=== PATIENT | male | born 1975 | race Caucasian/White ===

== ENCOUNTER 2017-09-02 17:22 | Inpatient (IN) | payer OTHER ==
--- NOTE | 2017-09-02 17:30 | PDOC ---
Rapid Medical Evaluation Time Seen by Provider: 09/02/17 17:25 Medical Evaluation: 09/02/17 17:25 The patient presents with a chief complaint of: Blood clot in R leg. Diagnosed at urgent care. Has R leg swelling and pain. Pt. smokes. No recent travel. First time with blood clot. currently rates the pain a 3/10. Also states he has been getting shortness of breath in the last two weeks when getting up. No shortness of breath on exertion. I have performed a brief in-person evaluation of this patient; Pertinent physical exam findings: ambulatory, in no respiratory distress. I have ordered the following: CBC, CMP, PT/INR. Duplex US ekg, cxr The patient will proceed to the ED for further evaluation.
--- NOTE | 2017-09-02 17:50 | PDOC ---
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 Patient was seen at [facility] 6 days prior and treated for suspected cellulitis with Keflex and another antibiotic which he does not recall the name of. States that his swelling was worse today so he went back to [facility] and then found out he had a RLE DVT on an US performed at [facility]. He has a 30 pack year smoking history and binge drinks occasionally. Denies recent travel but has been more immobile lately as he was told to rest his right leg and elevate it for the presumed cellulitis. Denies fevers chills, nausea vomiting, skin break down, SOB, chest pain, or other sick symptoms. He does not have a PCP. 09/02/17 18:49 Past History - Past Medical History Allergies/Adverse Reactions: Allergies Allergy/AdvReac Type Severity Reaction Status Date / Time No Known Allergies Allergy Verified 09/02/17 17:25 COPD: No - Suicide/Smoking/Psychosocial Hx Smoking History: Never smoked Have you smoked in the past 12 months: Yes Number of Cigarettes Smoked Daily: 20 Information on smoking cessation initiated: Yes Hx Alcohol Use: No Drug/Substance Use Hx: No Substance Use Type: None Review of Systems - Review of Systems Constitutional: No: Chills, Diaphoresis, Fever HEENTM: No: Eye Pain, Blurred Vision, Double Vision Respiratory: No: Cough, Orthopnea, Shortness of Breath Cardiac (ROS): Yes: Edema. No: Chest Pain, Irregular Heart Rate, Palpitations ABD/GI: No: Constipated, Diarrhea, Nausea, Vomiting : No: Burning, Dysuria, Discharge Musculoskeletal: No: Back Pain, Joint Swelling, Muscle Pain Integumentary: Yes: Erythema. No: Bruising, Flushing, Lesions, Lumps Neurological: No: Headache, Numbness, Paresthesia Hematologic/Lymphatic: No: Anemia, Blood Clots, Easy Bleeding *Physical Exam - Vital Signs Last Vital Signs Temp Pulse Resp BP Pulse Ox 98.2 F 78 18 140/75 100 09/02/17 17:26 09/02/17 17:26 09/02/17 17:26 09/02/17 17:26 09/02/17 17:26 - Physical Exam General Appearance: Yes: Nourished, Appropriately Dressed. No: Apparent Distress HEENT: positive: EOMI, FLORA, Normal ENT Inspection, Normal Voice Neck: positive: Trachea midline, Normal Thyroid, Supple. negative: Tender, Rigid Respiratory/Chest: positive: Lungs Clear, Normal Breath Sounds. negative: Chest Tender, Respiratory Distress, Accessory Muscle Use Cardiovascular: positive: Regular Rhythm, Regular Rate Gastrointestinal/Abdominal: positive: Normal Bowel Sounds, Flat, Soft. negative : Tender Musculoskeletal: positive: Normal Inspection Extremity: positive: Normal Capillary Refill, Normal Range of Motion, Swelling. negative: Normal Inspection (Miriam cirumferential swelling in the RLE without tenderness or skin breakdown), Tender, Erythema Integumentary: positive: Normal Color, Dry, Warm Neurologic: positive: Fully Oriented, Alert, Normal Mood/Affect, Normal Response , Motor Strength 5/5 ED Treatment Course - LABORATORY CBC & Chemistry Diagram: 09/02/17 17:52 09/02/17 17:52 Medical Decision Making - Medical Decision Making 42 year old previously healthy male without any significant family history or DVTs or clotting disorders presenting with a right lower extremity DVT of unknown chronicity but likely 4-6 days. Patient denies trauma to that area but has been slightly immobile with a possible cellulitis (diagnosed by [facility] 6 days prior). Repeat U/S in our department demonstrating occlusive thrombosis within the right posterior tibial vein, poplieal and femoral veins, incomplete compressibility of the right common femoral vein with flow, likely compatible with nonocclusive thrombus. Case was discussed with Dr. Becker at 19:48 PM and he indicted that the most appropriate action at tis point would be medical management with heparin. Patient admitted under hospitalist service with extra hypercoag labs sent and heparin bolus + drip started. 09/02/17 20:05 *DC/Admit/Observation/Transfer Diagnosis at time of Disposition: DVT (deep venous thrombosis) Qualifiers: DVT location: lower extremity Affected thrombotic vein of extremity: other lower extremity vein Chronicity: acute Laterality: right Qualified Code(s): I82.491 - Acute embolism and thrombosis of other specified deep vein of right lower extremity - Discharge Dispostion Condition at time of disposition: Stable Admit: Yes - Referrals - Patient Instructions - Post Discharge Activity
[2017-09-02 17:57] LABS: BASO % 1.1 % (0-2.0); EOS % 3.7 % (0-4.5); HEMATOCRIT 39.5 % (35.4-49); HEMOGLOBIN 13.7 GM/dL (11.7-16.9); LYMPH % 35.2 % (8-40); MCH 30.2 pg (25.7-33.7); MCHC 34.7 g/dl (32.0-35.9); MEAN CELL VOLUME 87.1 fl (80-96); MEAN PLT VOLUME 7.7 fl (7.5-11.1); MONO % 6.9 % (3.8-10.2); NEUT % 53.1 % (42.8-82.8); PLATELET COUNT 251 K/MM3 (134-434); RBC 4.53 M/mm3 (4.00-5.60); RDW 12.6 % (11.9-15.9); WHITE BLOOD COUNT 8.8 K/mm3 (4.0-10.0)
[2017-09-02 18:22] LABS: ALBUMIN 4.2 g/dl (3.4-5.0); ANION GAP 10 (8-16); BILIRUBIN,TOTAL 0.2 mg/dL (0.2-1.0); BLOOD UREA NITROGEN 25 mg/dL (7-18); CHLORIDE 103 mmol/L (98-107); CO2 26 mmol/L (21-32); CREATININE 1.3 mg/dL (0.7-1.3); GLUCOSE,RANDOM 95 mg/dL (74-106); POTASSIUM 4.7 mmol/L (3.5-5.1); SGOT/AST 16 U/L (15-37); SGPT/ALT 26 U/L (12-78); SODIUM 139 mmol/L (136-145); TOT PROT 7.5 g/dl (6.4-8.2)
[2017-09-02 18:23] LABS: ALK PHOS 86 U/L (45-117)
[2017-09-02 18:43] LABS: INR 1.11 (0.82-1.09); PROTHROMBIN TIME (PATIENT) 12.5 SEC (9.98-11.88)
--- NOTE | 2017-09-02 19:21 | PDOC ---
Attending Attestation - Resident Resident Name: MaikLeander - ED Attending Attestation I have performed the following: I have examined & evaluated the patient, The case was reviewed & discussed with the resident, I agree w/resident's findings & plan, Exceptions are as noted - HPI HPI: 09/02/17 19:19 42-year-old male with no medical history presents with right lower extremity DVT. Approximately one week ago, the patient visited an urgent care for redness and swelling the right leg. Was presumably treated for sialitis and given antibiotics. The erythema and the size improved but patient continued persistently enlarged right lower extremity. Saw the urgent care again today and had an ultrasound which demonstrated an extensive right-sided DVT according to the patient. Denies any chest pain or shortness of breath. Patient does not have a primary care physician so came into the ED. - Physicial Exam PE: 09/02/17 19:20 GENERAL: Awake, alert, and fully oriented, in no acute distress. HEAD: No signs of trauma EYES: PERRLA, EOMI, sclera anicteric, conjunctiva clear ENT: Auricles normal inspection, hearing grossly normal, nares patent NECK: Normal ROM, supple, no lymphadenopathy, JVD, or masses LUNGS: Breath sounds equal, clear to auscultation bilaterally. No wheezes, and no crackles HEART: Regular rate and rhythm, normal S1 and S2, no murmurs, rubs or gallops EXTREMITIES:RLE enlarged compared to left. mild R sided calf tenderness. NEUROLOGICAL: Cranial nerves II through XII grossly intact. Normal speech, normal gait SKIN: Warm, Dry, normal turgor, no rashes or lesions noted. - Medical Decision Making 09/02/17 19:22 Vital Signs Temp Pulse Resp BP Pulse Ox 98.2 F 78 18 140/75 100 09/02/17 17:26 09/02/17 17:26 09/02/17 17:26 09/02/17 17:26 09/02/17 17:26 Pt with R sided DVT. Will need to anticoagulate. No concerns for PE at this time. Pt will need hypercoagulable workup. Given no follow up as an outpatient, pt should be admitted. 09/02/17 19:57 CBC, BMP 09/02/17 17:52 09/02/17 17:52 CMP Sodium 139 mmol/L (136-145) 09/02/17 17:52 Potassium 4.7 mmol/L (3.5-5.1) 09/02/17 17:52 Chloride 103 mmol/L (98-107) 09/02/17 17:52 Carbon Dioxide 26 mmol/L (21-32) 09/02/17 17:52 Anion Gap 10 (8-16) 09/02/17 17:52 BUN 25 mg/dL (7-18) H 09/02/17 17:52 Creatinine 1.3 mg/dL (0.7-1.3) 09/02/17 17:52 Creat Clearance w eGFR 59.97 (>60) 09/02/17 17:52 Random Glucose 95 mg/dL (74-106) 09/02/17 17:52 Calcium 9.0 mg/dL (8.5-10.1) 09/02/17 17:52 Total Bilirubin 0.2 mg/dL (0.2-1.0) 09/02/17 17:52 AST 16 U/L (15-37) 09/02/17 17:52 ALT 26 U/L (12-78) 09/02/17 17:52 Alkaline Phosphatase 86 U/L (45-117) 09/02/17 17:52 Total Protein 7.5 g/dl (6.4-8.2) 09/02/17 17:52 Albumin 4.2 g/dl (3.4-5.0) 09/02/17 17:52 INR, PTT INR 1.11 (0.82-1.09) 09/02/17 17:52 Heparin initiated for extensive DVT. Vascular consulted and Dr. Smith aware of the case. Case discussed with [facility] hospitalist who accepts patient for med/surg admission.
[2017-09-02] MEDS ORDERED: HEPARIN NA (PORCINE) 5,000 UNITS/ML 1ML VIAL IVPUSH PRN ×2 (19:54)
--- NOTE | 2017-09-02 19:59 | PDOC ---
*Physical Exam - Vital Signs Last Vital Signs Temp Pulse Resp BP Pulse Ox 98.2 F 78 18 140/75 100 09/02/17 17:26 09/02/17 17:26 09/02/17 17:26 09/02/17 17:26 09/02/17 17:26 ED Treatment Course - LABORATORY CBC & Chemistry Diagram: 09/02/17 17:52 09/02/17 17:52 - ADDITIONAL ORDERS Additional order review: Laboratory Results 09/02/17 09/02/17 17:52 17:52 PT with INR 12.50 H INR 1.11 Sodium 139 Potassium 4.7 Chloride 103 Carbon Dioxide 26 Anion Gap 10 BUN 25 H Creatinine 1.3 Creat Clearance w eGFR 59.97 Random Glucose 95 Calcium 9.0 Total Bilirubin 0.2 AST 16 ALT 26 Alkaline Phosphatase 86 Total Protein 7.5 Albumin 4.2 09/02/17 17:52 RBC 4.53 MCV 87.1 MCHC 34.7 RDW 12.6 MPV 7.7 Neutrophils % 53.1 Lymphocytes % 35.2 Monocytes % 6.9 Eosinophils % 3.7 Basophils % 1.1 *DC/Admit/Observation/Transfer Diagnosis at time of Disposition: DVT (deep venous thrombosis) Qualifiers: DVT location: lower extremity Affected thrombotic vein of extremity: other lower extremity vein Chronicity: acute Laterality: right Qualified Code(s): I82.491 - Acute embolism and thrombosis of other specified deep vein of right lower extremity - Discharge Dispostion Condition at time of disposition: Stable Admit: Yes - Referrals - Patient Instructions - Post Discharge Activity
[2017-09-02] MEDS ORDERED: HEPARIN NA (PORCINE) 5,000 UNITS/ML 1ML VIAL IVPUSH ONE (20:00)
[2017-09-02] MEDS ORDERED: HEPARIN - 25,000 UNIT in SODIUM CHLORIDE 495 ML IV SCH ×2 (20:00→21:27)
[2017-09-02] MEDS ORDERED: HEPARIN NA (PORCINE) 5,000 UNITS/ML 1ML VIAL ONE ×2 (20:27→20:28)
--- NOTE | 2017-09-02 21:15 | PN ---
Teaching Attending Note Name of Resident: Colby Clark ATTENDING PHYSICIAN STATEMENT I saw and evaluated the patient. I reviewed the resident's note and discussed the case with the resident. I agree with the resident's findings and plan as documented. SUBJECTIVE: 42 y/o male presented to the ER after the patient noted acute swelling and redness in his right leg, the patient stated that the pain and redness started about 2 wks ago, for which he went to the urgent care next to his house, and he was given antibiotics to be treated for possible cellulitis, according to him after the pain didnt resolve the urgent care told him to come to the ER to evaluate him for an acute DVT. patient stated that he has not travelled, or driven any long distance, however he has sat on a chair for 4 to 5 hours. he does not recall any family history of any thromboembolic events, denied any PMH , stated that he smokes, and has a sedentary life style. ROS is negative beside what was given OBJECTIVE: aaox3 s1 and s2 RRR ext red, tender to touch, abdomen soft non-tender lungs CTA ASSESSMENT AND PLAN: admit patient to [facility] start the patient on heparin drip consult vascular consult hematology patient can be started on rivaroxiban 15mg bid x 21days after hematology evaluate/recommend obtain coagulation cascade
[2017-09-02] MEDS ORDERED: ACETAMINOPHEN 325 MG TABLET (FP) PO PRN (21:28)
--- NOTE | 2017-09-02 21:32 | PN ---
Physical Exam: SUBJECTIVE: Patient seen and examined OBJECTIVE: Vital Signs Period Temp Pulse Resp BP Sys/Reid Pulse Ox Last 24 Hr 98.2 F 78 18 140/75 100 GENERAL: The patient is awake, alert, and fully oriented, in no acute distress. HEAD: Normal with no signs of trauma. EYES: PERRL, extraocular movements intact, sclera anicteric, conjunctiva clear. No ptosis. ENT: Ears normal, nares patent, oropharynx clear without exudates, moist mucous membranes. NECK: Trachea midline, full range of motion, supple. LUNGS: Breath sounds equal, clear to auscultation bilaterally, no wheezes, no crackles, no accessory muscle use. HEART: Regular rate and rhythm, S1, S2 without murmur, rub or gallop. ABDOMEN: Soft, nontender, nondistended, normoactive bowel sounds, no guarding, no rebound, no hepatosplenomegaly, no masses. EXTREMITIES: 2+ pulses, warm, well-perfused, no edema. NEUROLOGICAL: Cranial nerves II through XII grossly intact. Normal speech, gait not observed. PSYCH: Normal mood, normal affect. SKIN: Warm, dry, normal turgor, no rashes or lesions noted Laboratory Results - last 24 hr 09/02/17 09/02/17 09/02/17 17:52 17:52 17:52 WBC 8.8 RBC 4.53 Hgb 13.7 Hct 39.5 MCV 87.1 MCH 30.2 MCHC 34.7 RDW 12.6 Plt Count 251 MPV 7.7 Neutrophils % 53.1 Lymphocytes % 35.2 Monocytes % 6.9 Eosinophils % 3.7 Basophils % 1.1 PT with INR 12.50 H INR 1.11 Sodium 139 Potassium 4.7 Chloride 103 Carbon Dioxide 26 Anion Gap 10 BUN 25 H Creatinine 1.3 Creat Clearance w eGFR 59.97 Random Glucose 95 Calcium 9.0 Total Bilirubin 0.2 AST 16 ALT 26 Alkaline Phosphatase 86 Total Protein 7.5 Albumin 4.2 Active Medications Generic Name Dose Route Start Last Admin Trade Name Freq PRN Reason Stop Dose Admin Acetaminophen 650 mg 09/02/17 21:28 Tylenol - PO Q4H PRN PAIN Heparin Sodium (Porcine) 1,000 unit 09/02/17 19:54 Heparin - IVPUSH PRN PRN Heparin Heparin Sodium (Porcine) 5,000 unit 09/02/17 19:54 Heparin - IVPUSH PRN PRN Heparin Heparin Sodium (Porcine) 25, 500 mls @ 36 mls/hr 09/02/17 21:27 000 unit/ Sodium Chloride IV TITR RASHARD Protocol 1,800 UNIT/HR ASSESSMENT/PLAN: Visit type - Emergency Visit Emergency Visit: Yes Care time: The patient presented to the Emergency Department on the above date and was hospitalized for further evaluation of their emergent condition. - New Patient This patient is new to me today: Yes Date on this admission: 09/02/17 - Critical Care Critical Care patient: No
--- NOTE | 2017-09-02 23:44 | HP ---
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 Patient states he had left leg redness and swelling x 2 weeks. Patient went to [facility] and was tx for cellulitis with 2 abx (unknown). Patient's leg improved on follow ups, but today he states he told [facility] he had calf pain as well. He underwent an u/s, which found an acute DVT and was sent to the ER. Patient denies any fever, chills, chest pain, sob, abdominal pain, recent travel, recent long distance driving, family history of any blood clots or miscarriages, family history of bleeding disorders. Patient states he smokes 1 ppd x many years and has had a sedentary lifestyle over the past few months, where he laid on the cough for many hours at a time. ER course was notable for: (1) labs (2) imaging (3) heparin drip Recent Travel: denies PAST MEDICAL HISTORY: none PAST SURGICAL HISTORY: none Social History: Smokin ppd x many yrs Alcohol: rarely Drugs: denies Family History: DM, HTN Allergies No Known Allergies Allergy (Verified 09/02/17 17:25) HOME MEDICATIONS: Home Medications Medication Instructions Recorded NK [No Known Home Medication] 09/02/17 REVIEW OF SYSTEMS as per hpi PHYSICAL EXAMINATION Vital Signs - 24 hr 09/02/17 17:26 Temperature 98.2 F Pulse Rate 78 Respiratory 18 Rate Blood Pressure 140/75 O2 Sat by Pulse 100 Oximetry (%) GENERAL: Awake, alert, and fully oriented, in no acute distress. HEAD: Normal with no signs of trauma. NECK: Normal range of motion, supple without lymphadenopathy, JVD, or masses. LUNGS: Breath sounds equal, clear to auscultation bilaterally. No wheezes, and no crackles. No accessory muscle use. HEART: Regular rate and rhythm, normal S1 and S2 without murmur, rub or gallop. ABDOMEN: Soft, nontender, not distended, normoactive bowel sounds, no guarding, no rebound, no masses. No hepatomegaly or splenomegaly. MUSCULOSKELETAL: Normal range of motion at all joints. No bony deformities or tenderness. UPPER EXTREMITIES: 2+ pulses, warm, well-perfused. No cyanosis. No clubbing. No peripheral edema. LOWER EXTREMITIES:warm, well-perfused. No calf tenderness. Nonpitting edema in RLE, No edema in LLE. 1+ pulses in LLE, 2+ pulses in RLE, mild warmth in RLE NEUROLOGICAL: Cranial nerves II-XII intact. Normal speech. Normal gait. PSYCHIATRIC: Cooperative. Good eye contact. Appropriate mood and affect. SKIN: Warm, dry, normal turgor, no rashes or lesions noted, normal capillary refill. Laboratory Results - last 24 hr 09/02/17 09/02/17 09/02/17 15:38 17:52 17:52 WBC 8.8 RBC 4.53 Hgb 13.7 Hct 39.5 MCV 87.1 MCH 30.2 MCHC 34.7 RDW 12.6 Plt Count 251 MPV 7.7 Neutrophils % 53.1 Lymphocytes % 35.2 Monocytes % 6.9 Eosinophils % 3.7 Basophils % 1.1 PT with INR 12.50 H INR 1.11 PTT (Actin FS) 31.8 Sodium Potassium Chloride Carbon Dioxide Anion Gap BUN Creatinine Creat Clearance w eGFR Random Glucose Calcium Total Bilirubin AST ALT Alkaline Phosphatase Total Protein Albumin 09/02/17 17:52 WBC RBC Hgb Hct MCV MCH MCHC RDW Plt Count MPV Neutrophils % Lymphocytes % Monocytes % Eosinophils % Basophils % PT with INR INR PTT (Actin FS) Sodium 139 Potassium 4.7 Chloride 103 Carbon Dioxide 26 Anion Gap 10 BUN 25 H Creatinine 1.3 Creat Clearance w eGFR 59.97 Random Glucose 95 Calcium 9.0 Total Bilirubin 0.2 AST 16 ALT 26 Alkaline Phosphatase 86 Total Protein 7.5 Albumin 4.2 ASSESSMENT/PLAN: 42 year old M with no known pmh presented with acute unprovoked DVT from [facility] #Acute Unprovoked DVT -Hypercoagulable workup -Heparin drip for DVT -Vascular/Hematology consult -Tylenol prn for pain control -Will check lipid profile/a1c as pt has no pcp and has had no routine physical in last 10 yrs #FEN/GI -No IVF -wnl -Regular Diet #PPx -Heparin Drip Visit type - Emergency Visit Emergency Visit: Yes ED Registration Date: 09/02/17 Care time: The patient presented to the Emergency Department on the above date and was hospitalized for further evaluation of their emergent condition. - New Patient This patient is new to me today: Yes Date on this admission: 09/02/17 - Critical Care Critical Care patient: No Hospitalist Screening - Colonoscopy Questionnaire Colonoscopy Questionnaire: Colonoscopy Questionnaire - Patient: 50 - 75 years old and never had a screening colonoscopy: Unknown History of colon or rectal polyps, or CA: Unknown History of IBD, Crohn's disease or UC: Unknown History of abdominal radiation therapy as a child: Unknown - Relative: 1 with colon or rectal CA, or polyps at age 60 or younger: Unknown Colon or rectal CA diagnosed at age 45 or younger: Unknown Multiple relatives with colon or rectal CA: Unknown - Outcome: Screening Result: Negative Screen
[2017-09-03 00:36] VITALS: BMI 37.5
[2017-09-03 08:16] LABS: BASO % 0.8 % (0-2.0); EOS % 4.2 % (0-4.5); HEMATOCRIT 36.1 % (35.4-49); HEMOGLOBIN 12.5 GM/dL (11.7-16.9); LYMPH % 37.3 % (8-40); MCH 29.9 pg (25.7-33.7); MCHC 34.6 g/dl (32.0-35.9); MEAN CELL VOLUME 86.4 fl (80-96); MEAN PLT VOLUME 7.8 fl (7.5-11.1); NEUT % 50.7 % (42.8-82.8); PLATELET COUNT 209 K/MM3 (134-434); RBC 4.18 M/mm3 (4.00-5.60); RDW 12.2 % (11.9-15.9); WHITE BLOOD COUNT 7.3 K/mm3 (4.0-10.0)
[2017-09-03 08:35] LABS: INR 1.05 (0.82-1.09); PROTHROMBIN TIME (PATIENT) 11.9 SEC (9.98-11.88)
[2017-09-03 08:47] LABS: CHOLESTEROL 167 mg/dL (50-200); HDL CHOLESTEROL 28 mg/dL (40-60); LDL CHOLESTEROL (ONLY SJRH) 109 mg/dL (5-100); TRIGLYCERIDES 260 mg/dL (35-160)
[2017-09-03 08:57] LABS: ALBUMIN 3.4 g/dl (3.4-5.0); ALK PHOS 82 U/L (45-117); ANION GAP 9 (8-16); BILIRUBIN,TOTAL 0.2 mg/dL (0.2-1.0); BLOOD UREA NITROGEN 26 mg/dL (7-18); CALCIUM 8.2 mg/dL (8.5-10.1); CHLORIDE 106 mmol/L (98-107); CO2 27 mmol/L (21-32); CREATININE 1.1 mg/dL (0.7-1.3); GLUCOSE,RANDOM 116 mg/dL (74-106); POTASSIUM 4.2 mmol/L (3.5-5.1); SGOT/AST 15 U/L (15-37); SGPT/ALT 22 U/L (12-78); SODIUM 142 mmol/L (136-145); TOT PROT 6.3 g/dl (6.4-8.2)
[2017-09-03 10:05] VITALS: BP 118/67; PULSE 63; TEMP 98
--- NOTE | 2017-09-03 10:51 | CONSULT ---
Consult - History of Present Illness History of Present Illness: 42 year old man with 3 week history of right leg pain and swelling . Yesterday the swelling was increased and he went to urgent care. A Duplex scan showed DVT of the right femoral and popliteal vein. He has no prior history of venous thrombosis and no family history. He has had no trauma or confinement. He is a plant nursery worker. He denies any foot pain, numbness or SOB. - History Source History Provided By: Patient Limitations to Obtaining History: No Limitations - Alcohol/Substance Use Hx Alcohol Use: No - Smoking History Smoking history: Current every day smoker Have you smoked in the past 12 months: Yes Aproximately how many cigarettes per day: 20 Home Medications - Allergies Allergies/Adverse Reactions: Allergies Allergy/AdvReac Type Severity Reaction Status Date / Time No Known Allergies Allergy Verified 09/02/17 17:25 - Home Medications Home Medications: Ambulatory Orders NK [No Known Home Medication] 09/02/17 Review of Systems - Review of Systems Constitutional: reports: No Symptoms Respiratory: reports: No Symptoms Physical Exam Vital Signs: Vital Signs Temperature 98 F 09/03/17 09:35 Pulse Rate 63 09/03/17 09:35 Respiratory Rate 20 09/03/17 09:35 Blood Pressure 118/67 09/03/17 09:35 O2 Sat by Pulse Oximetry (%) 96 09/02/17 23:00 Constitutional: Yes: No Distress Eyes: Yes: EOM Intact Neck: Yes: Supple Cardiovascular: Yes: Regular Rate and Rhythm Respiratory: Yes: Regular Gastrointestinal: Yes: Soft Extremities: Yes: WNL Edema: Yes Edema: RLE: 1+ Peripheral Pulses WNL: Yes Integumentary: Yes: WNL Labs: CBC, BMP 09/03/17 07:36 09/03/17 08:40 Imaging - Results Ultrasound: Image Reviewed (Venous Duplex reviewed) Problem List - Problems (1) DVT (deep venous thrombosis) Assessment/Plan: Right leg DVT, probably 2-3 weeks old by his history. Swelling not severe and no evidence for other complications, such as phlegmasia or PE. Treatment of unprovoked DVT will require at least 6 months of anticoagulation. I recemmend Eliquis 10 mg BID for 7 days and then 5 mg BID after. I will see in my office in 3 weeks. Leg elevation and support hose to help control any swelling. Code(s): I82.409 - ACUTE EMBOLISM AND THOMBOS UNSP DEEP VN UNSP LOWER EXTREMITY Qualifiers: DVT location: lower extremity Affected thrombotic vein of extremity: femoral Chronicity: acute Laterality: right Qualified Code(s): I82.411 - Acute embolism and thrombosis of right femoral vein
[2017-09-03] MEDS ORDERED: APIXABAN 5 MG TABLET PO SCH (11:45)
--- NOTE | 2017-09-03 11:53 | DS ---
Physical Exam: SUBJECTIVE: Patient seen and examined Patient is a 42yo male denies having any shortness of breath, no chest pain, no palpitations. Stated 3 weeks ago hid Right LE became red, went to [facility] and was given a Rx for US of LE, and was prescribed antibiotics. Taken the antibiotics and his RLE redness improved but his calf is still swollen and was getting pain when he walked. No fever or chills. OBJECTIVE: Vital Signs Temperature 98 F 09/03/17 09:35 Pulse Rate 63 09/03/17 09:35 Respiratory Rate 20 09/03/17 09:35 Blood Pressure 118/67 09/03/17 09:35 O2 Sat by Pulse Oximetry (%) 96 09/02/17 23:00 PHYSICAL EXAM GENERAL: The patient is awake, alert, and fully oriented, in no acute distress. HEAD: Normal with no signs of trauma. EYES: PERRL, extraocular movements intact, sclera anicteric, conjunctiva clear. ENT: Ears normal, oropharynx clear without exudates, moist mucous membranes. NECK: Trachea midline, full range of motion, supple. LUNGS: Breath sounds equal, clear to auscultation bilaterally, no wheezes, no crackles, no accessory muscle use. HEART: Regular rate and rhythm, S1, S2 without murmur, rub or gallop. ABDOMEN: Soft, nontender, nondistended, normoactive bowel sounds, no guarding, no rebound, no hepatosplenomegaly, no masses. EXTREMITIES: 2+ pulses, warm, well-perfused, Negative michael sign , right calf circumference 2x the size of the Left, no discoloration was noted. NEUROLOGICAL: Cranial nerves II through XII grossly intact. Normal speech, gait not observed. PSYCH: Normal mood, normal affect. SKIN: Warm, dry, normal turgor, no rashes or lesions noted. LABS Laboratory Results - last 24 hr 09/02/17 09/02/17 09/02/17 15:38 17:52 17:52 WBC 8.8 RBC 4.53 Hgb 13.7 Hct 39.5 MCV 87.1 MCH 30.2 MCHC 34.7 RDW 12.6 Plt Count 251 MPV 7.7 Neutrophils % 53.1 Lymphocytes % 35.2 Monocytes % 6.9 Eosinophils % 3.7 Basophils % 1.1 PT with INR 12.50 H INR 1.11 PTT (Actin FS) 31.8 Sodium Potassium Chloride Carbon Dioxide Anion Gap BUN Creatinine Creat Clearance w eGFR Random Glucose Hemoglobin A1c % Calcium Total Bilirubin AST ALT Alkaline Phosphatase Total Protein Albumin Triglycerides Cholesterol Total LDL Cholesterol HDL Cholesterol 09/02/17 09/03/17 09/03/17 17:52 04:30 07:36 WBC 7.3 RBC 4.18 Hgb 12.5 Hct 36.1 MCV 86.4 MCH 29.9 MCHC 34.6 RDW 12.2 Plt Count 209 MPV 7.8 Neutrophils % 50.7 Lymphocytes % 37.3 Monocytes % 7.0 Eosinophils % 4.2 Basophils % 0.8 PT with INR INR PTT (Actin FS) 61.6 H D Sodium 139 Potassium 4.7 Chloride 103 Carbon Dioxide 26 Anion Gap 10 BUN 25 H Creatinine 1.3 Creat Clearance w eGFR 59.97 Random Glucose 95 Hemoglobin A1c % Calcium 9.0 Total Bilirubin 0.2 AST 16 ALT 26 Alkaline Phosphatase 86 Total Protein 7.5 Albumin 4.2 Triglycerides Cholesterol Total LDL Cholesterol HDL Cholesterol 09/03/17 09/03/17 09/03/17 07:36 07:36 07:36 WBC RBC Hgb Hct MCV MCH MCHC RDW Plt Count MPV Neutrophils % Lymphocytes % Monocytes % Eosinophils % Basophils % PT with INR 11.90 H INR 1.05 PTT (Actin FS) Sodium Potassium Chloride Carbon Dioxide Anion Gap BUN Creatinine Creat Clearance w eGFR Random Glucose Hemoglobin A1c % 5.4 Calcium Total Bilirubin AST ALT Alkaline Phosphatase Total Protein Albumin Triglycerides 260 H Cholesterol 167 Total LDL Cholesterol 109 H HDL Cholesterol 28 L 09/03/17 08:40 WBC RBC Hgb Hct MCV MCH MCHC RDW Plt Count MPV Neutrophils % Lymphocytes % Monocytes % Eosinophils % Basophils % PT with INR INR PTT (Actin FS) Sodium 142 Potassium 4.2 Chloride 106 Carbon Dioxide 27 Anion Gap 9 BUN 26 H Creatinine 1.1 Creat Clearance w eGFR > 60 Random Glucose 116 H D Hemoglobin A1c % Calcium 8.2 L Total Bilirubin 0.2 AST 15 ALT 22 Alkaline Phosphatase 82 Total Protein 6.3 L Albumin 3.4 Triglycerides Cholesterol Total LDL Cholesterol HDL Cholesterol CBCD WBC 7.3 K/mm3 (4.0-10.0) 09/03/17 07:36 RBC 4.18 M/mm3 (4.00-5.60) 09/03/17 07:36 Hgb 12.5 GM/dL (11.7-16.9) 09/03/17 07:36 Hct 36.1 % (35.4-49) 09/03/17 07:36 MCV 86.4 fl (80-96) 09/03/17 07:36 MCHC 34.6 g/dl (32.0-35.9) 09/03/17 07:36 RDW 12.2 % (11.9-15.9) 09/03/17 07:36 Plt Count 209 K/MM3 (134-434) 09/03/17 07:36 MPV 7.8 fl (7.5-11.1) 09/03/17 07:36 CMP Sodium 142 mmol/L (136-145) 09/03/17 08:40 Potassium 4.2 mmol/L (3.5-5.1) 09/03/17 08:40 Chloride 106 mmol/L (98-107) 09/03/17 08:40 Carbon Dioxide 27 mmol/L (21-32) 09/03/17 08:40 Anion Gap 9 (8-16) 09/03/17 08:40 BUN 26 mg/dL (7-18) H 09/03/17 08:40 Creatinine 1.1 mg/dL (0.7-1.3) 09/03/17 08:40 Creat Clearance w eGFR > 60 (>60) 09/03/17 08:40 Random Glucose 116 mg/dL (74-106) H D 09/03/17 08:40 Calcium 8.2 mg/dL (8.5-10.1) L 09/03/17 08:40 Total Bilirubin 0.2 mg/dL (0.2-1.0) 09/03/17 08:40 AST 15 U/L (15-37) 09/03/17 08:40 ALT 22 U/L (12-78) 09/03/17 08:40 Alkaline Phosphatase 82 U/L (45-117) 09/03/17 08:40 Total Protein 6.3 g/dl (6.4-8.2) L 09/03/17 08:40 Albumin 3.4 g/dl (3.4-5.0) 09/03/17 08:40 Current Medications Generic Name Dose Route Start Last Admin Trade Name Freq PRN Reason Stop Dose Admin Acetaminophen 650 mg 03/30/18 21:28 Tylenol - PO Q4H PRN PAIN Apixaban 10 mg 09/03/17 11:45 Eliquis - PO 09/10/17 11:44 BID RASHARD Heparin Sodium (Porcine) 1,000 unit 09/02/17 19:54 Heparin - IVPUSH PRN PRN Heparin Heparin Sodium (Porcine) 5,000 unit 09/02/17 19:54 Heparin - IVPUSH PRN PRN Heparin Heparin Sodium (Porcine) 25, 500 mls @ 36 mls/hr 09/02/17 21:27 09/03/17 06: 17 000 unit/ Sodium Chloride IV 1,800 unit/hr TITR RASHARD 36 mls/hr Protocol Titration 1,800 UNIT/HR Hemoglobin A1c 5.4. HOSPITAL COURSE: Date of Admission:09/02/17 Date of Discharge: 09/03/17 Patient is a 42 year old M with no known pmh presented with acute unprovoked DVT. 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 #Acute Unprovoked DVT ,Hypercoagulable workup is ordered, needs to follow up with who saw him in the hospital in 3 weeks , and recommended to see industrial gas servicer supervisor for further w/u or the result. s/p Heparin drip for DVT. As per 's(Vascular surgeon) seen the patient in the hospital , recommendations to start the patient on Eliquis 10mg BId x 7 days followed with 5mg po bid x 6 months. Discussed with the patient in details will follow with and Hematologists 's group. Discussed with will see the patient in their office, since patient wants to go home and can't wait for the industrial gas servicer supervisor. #Obesity: discussed with the patient to watch his diet, to stay away from Fatty , fried food, since his Tgs are elevated and to monitor his weight. # Elevated Lipids; patient needs to follow with primary care physician closely , also weight loss recommended and recheck his lipid panel. will refer him to . 40 minutes discharge time. discussed with , and Minutes to complete discharge: 40 Discharge Summary Reason For Visit: DVT (DEEP VEIN THROMBOSIS) Current Active Problems DVT (deep venous thrombosis) (Acute) Condition: Stable - Instructions Diet, Activity, Other Instructions: Low Fat diet, stay away from fried food and sugary products. HEALTHY DIET IS RECOMMENDED. You were admitted for Right lower extremity Deep venous thrombosis. Work up is done, please follow with with in 3 week period and follow up with industrial gas servicer supervisor within 2 weeks for further result since most of the work up that was done in the hospital is a send out. Also your lipid panel was found to be elevated, healthy dist is recommended and follow up with your primary care doctor, recommending you Brien Garcia. need to recheck your lipid panel within 3 months period post watching your diet. Please take Elquis 10mg (2x 5mg=10mg) twice per day for 7 days then take 5mg= to one 5mg tablet twice per day for 6 months. please follow up with in 3 week period. Follow with hematolgist for further work and results. If for any reason your presciption is not covered under your insurance plan, please call Dr. Conner for the altrernative drug. Referrals: Reji De La Cruz MD [Staff Physician] - 2 Weeks Crow Becker MD [Staff Physician] - 3 Weeks Bro Tesfaye MD [Staff Physician] - 1 Week Disposition: HOME - Home Medications Comprehensive Discharge Medication List: Ambulatory Orders NK [No Known Home Medication] 09/02/17 This patient is new to me today: Yes Date on this admission: 09/03/17 Emergency Visit: Yes ED Registration Date: 09/02/17 Care time: The patient presented to the Emergency Department on the above date and was hospitalized for further evaluation of their emergent condition. Critical Care patient: No - Discharge Referral Referred to [facility] Yes Physician Referral: Bro Tesfaye MD (Int Med) (follow up visit in a week period)
--- NOTE | 2017-09-03 18:08 | EKG ---
Test Reason : Blood Pressure : / mmHG Vent. Rate : 065 BPM Atrial Rate : 065 BPM P-R Int : 150 ms QRS Dur : 094 ms QT Int : 408 ms P-R-T Axes : 042 026 022 degrees QTc Int : 424 ms NORMAL SINUS RHYTHM NORMAL ECG NO PREVIOUS ECGS AVAILABLE Confirmed by MD PRAVIN, ZENON ([id number]) on 09/03/2017 6:07:28 PM Referred By: Confirmed By:ZENON COSTELLO MD
[2017-09-06 14:13] LABS: ANTITHROMBIN ANTIGEN 85 % (72-124); ANTITHROMBIN III 86 % (75-135); PROTEIN C ACTIVITY 122 % (73-180); PROTEIN S FREE 77 % (57-157); PROTEIN S, FREE 76 % (57-157)
== END 2017-09-03 14:19 | disposition home or self-care (01) | DRG 301 ==
LOC: JER 17:22 → JERBED 19:59 → UNDOADMIN 20:11 → JERBED 20:11 → J5S 23:25
PROVIDERS: ADMIT Internal Medicine; ATTEND Internal Medicine
DX: I82.411 Acute embolism and thrombosis of right femoral vein (principal); I82.431 Acute embolism and thrombosis of right popliteal vein; F17.210 Nicotine dependence, cigarettes, uncomplicated; E66.9 Obesity, unspecified; Z68.37 Body mass index [BMI] 37.0-37.9, adult
CPT/HCPCS: 36415; 71046-TC-FY; 80053; 80061; 81241; 83036; 83721; 85025; 85300; 85301; 85302; 85303; 85305; 85306; 85610; 85730; 86038; 93005; 93010; 93971-TC; 99282-25; J1644